=== PATIENT | female | born 1945 | race Hispanic/Latino ===

== ENCOUNTER 2019-12-24 16:39 | Emergency (ER) | payer SELFPAY ==
--- NOTE | ~2019-12-24 | CT_ITS ---
EXAMINATION: CT brain wo con DATE: 12/24/2019 17:56 INDICATION: Right eye pain and vision loss TECHNIQUE: Computed tomography (CT) of the head was performed without intravenous contrast. Sagittal and coronal reconstructions were performed. The mA was adjusted according to patient size. Iterative reconstruction technique was employed. The dose-length product was 605.33 mGy-cm. COMPARISON: None FINDINGS: No acute intracranial hemorrhage, acute infarction or abnormal extra axial fluid collection. Symmetri c prominence of the sulci consistent with mild age-appropriate diffuse cerebral volume loss. Ventric les are normal and symmetric. No mass/mass effect. The orbits, paranasal sinuses and mastoid air cell s are normal. IMPRESSION: 1. Normal aging brain. No acute intracranial process. Reviewed, dictated and finalized at location A.
[2019-12-24 17:00] VITALS: BP 149/66; PULSE 96; RESP 18; TEMP 37; O2SAT 100
--- NOTE | 2019-12-24 17:25 | ED.EYEPROB ---
HPI - Eye Problem General Chief complaint: Eye Problems <Mookie Jamison PA-C - Last Filed: 12/24/19 18:59> Stated complaint: Right Eye Pain <GRETCHEN Rice Last Filed: 12/24/19 18:59> Time Seen by Provider: 12/24/19 16:45 <Mookie Jamison PA-C - Last Filed: 12/24/19 18:59> Source: patient, family and interpreter and translator <Mookie Jamison PA-C - Last Filed: 12/24/19 18:59> Limitations: language barrier <Mookie Jamison PA-C - Last Filed: 12/24/19 18:59> History of Present Illness HPI Narrative: Patient is a 74-year-old female speaking who presents to emergency department with her daughter for evaluation of right eye pain and blindness that began 3 days ago today being the fourth day patient began with right eye pain followed by the inability to see from the right eye patient denies similar occurrence in the past injury or trauma or illness patient notes right eye pain only denies other complaints patient on arrival to emergency department is in no distress does not appear uncomfortable patient denies any health problems patient in the room interpreter and translator used to communicate with the patient <Mookie Jamison PA-C - Last Filed: 12/24/19 18:59> MD chief complaint: eye pain <Mookie Jamison PA-C - Last Filed: 12/24/19 18:59> Related Data Home medications: Home Medications Medication Instructions Recorded Confirmed No Home Medications 12/24/19 12/24/19 <Mookie Jamison PA-C - Last Filed: 12/24/19 18:59> Allergies/adverse reactions: Allergies Allergy/AdvReac Type Severity Reaction Status Date / Time No Known Allergies Allergy Verified 12/24/19 17:04 <Mookie Jamison PA-C - Last Filed: 12/24/19 18:59> Review of Systems Review of Systems: All systems reviewed & are unremarkable except as noted in HPI and below <Mookie Jamison PA-C - Last Filed: 12/24/19 18:59> PMFSH Social History Social History: Social History (Updated 12/24/19 @ 17:28 by Mookie Jamison PA-C) Smoking status: Never smoker Gender identity (if verbalized by the patient): Female <Mookie Jamison PA-C - Last Filed: 12/24/19 18:59> Exam Narrative: Exam Narrative: GENERAL: Well-appearing, well-nourished, and in no acute distress. HEAD: Normocephalic, atraumatic. EYES: Patient with EOMs intact patient with hazy cornea of the right eye with conjunctival irritation patient with nonreactive pupil. Patient with pressures in the right eye measuring 60 left eye measuring 19 ENT: Nares clear, no rhinorrhea or epistaxis. Mucous membranes moist. NECK: Supple. No adenopathy or masses. No carotid bruits or JVD CHEST: Clear to auscultation. No respiratory distress. No wheezes rales or rhonchi HEART: Regular rate and rhythm. No murmur heard. Normal peripheral pulses. EXTREMITIES: Normal range of motion. No edema. SKIN: Warm, dry, no rash. NEURO: No focal deficits. Alert and oriented x3. Cranial nerves II through XII grossly intact PSYCH: Normal mood and affect. <GRETCHEN Rice Last Filed: 12/24/19 18:59> Course Course Emergency Course: Patient in the room in no distress aware of case findings treatment plan and diagnosis agreeing to transfer will be sent by ambulance was given medications to lower the pressure in the eye as recommended by ophthalmology at [facility] <Mookie Jamison PA-C - Last Filed: 12/24/19 18:59> For this encounter, I have reviewed the PA documentation, treatment plan and medical decision making: And I have had [id number] time with the patient. Right eye has diffuse conjunctival erythema discussed with patient family plan for transfer in agreement at this time <Billy Wong DO - Last Filed: 12/24/19 19:01> Consultations Consultation #1: Discussed case with poultry pathologist who who is on diversion recommended [facility] Discussed case with ophthalmology at [facility] who would like Cosopt drops
[2019-12-24 17:58] LABS: Basophils Absolute Auto 0.1 K/mm3 (0.0-0.1); Basophils Percent Auto 0.7 % (0.2-1.2); Eosinophils Absolute Auto 0.1 K/mm3 (0-0.3); Eosinophils Percent Auto 1.9 % (0-4.4); Hematocrit 40.5 % (37.0-47.0); Immature Granulocyte Absolute 0.01 K/mm3 (0.00-0.031); Immature Granulocyte Percent A 0.1 % (0-0.5); Lymphocytes Absolute Auto 2.47 K/mm3 (0.9-3.2); Mean Corpuscular HGB Conc 34.6 g/dl (32-36); Mean Corpuscular Volume 92.5 fl (80-100); Mean Platelet Volume 9.5 fl (7.4-10.4); Monocytes Absolute Auto 0.6 K/mm3 (0.1-0.6); Monocytes Percent Auto 8.7 % (2.6-8.5); Neutrophils Absolute Auto 3.4 K/mm3 (1.3-6.7); Neutrophils Percent Auto 51.6 % (45.5-73.1); Platelet Count Result 302 k/mm3 (150-375); Red Blood Count 4.38 M/mm3 (4.2-5.4); Red Cell Distribution Width 12.1 % (11.5-14.5); White Blood Count 6.7 K/mm3 (4.5-10.0)
[2019-12-24 18:29] VITALS: BP 163/78; PULSE 66; RESP 20; O2SAT 99
[2019-12-24 18:29] LABS: Anion Gap 8 mmol/L (8-16); Blood Urea Nitrogen 14 mg/dL (7-17); Calcium 9.6 mg/dL (8.4-10.2); Carbon Dioxide 31 mmol/L (22-30); Chloride 99 mmol/L (98-107); Estimated Glomerular Filt Rate > 60; Glucose 123 mg/dL (65-105); Potassium 3.7 mmol/L (3.4-5.0); Sodium 138 mmol/L (137-145)
[2019-12-24 19:03] VITALS: BP 182/75; PULSE 71; RESP 20; O2SAT 100
--- NOTE | 2019-12-24 19:12 | PC.NURSE ---
called report to Micheline RICHARDS at [facility].
--- NOTE | 2019-12-24 19:16 | PC.NURSE ---
Consent for transport was obtained. Patient requested her daughter sign the consent form. Communication with patient and her daughter was facilitated by use of the [employer] video patternmaker plaster for divehi language.
--- NOTE | 2019-12-24 19:47 | PC.NURSE ---
Addendum entered by Janae Jameson 12/24/19 20:51: 2037: Cancelled [facility], patient going by private vehicle. Original Note: 1924: Called [facility] to transport patient to [facility]...ETA 1929. 1934: Called [facility] to transport patient...ETA would be at least 3 hours. 1938: Called [facility]...declined. 1941: Called [facility]...declined. 1942: Called [facility]...no answer?
[2019-12-24 20:00] VITALS: BP 158/81; PULSE 65; RESP 17; TEMP 36.7; O2SAT 100
[2019-12-24] MEDS: acetaZOLAMIDE SODIUM FOR INJ 500 MG VIAL IV PUSH (20:17)
== END 2019-12-24 20:25 | disposition short-term general hospital (02) ==
PROVIDERS: Emergency Medicine Emergency Medical Services; Emergency Provider Emergency Medicine
DX: H54.61 Unqualified visual loss, right eye, normal vision left eye (principal)
CPT/HCPCS: 36415; 70450; 80048; 85025; 96374; 96375; 99284; A9270; J0131; J1120